=== PATIENT | female | born 1950 | race Caucasian/White ===

== ENCOUNTER 2022-04-20 21:20 | Inpatient (IN) ==
[2022-04-20] MEDS ORDERED: Iopamidol - 370 500 ML MLS IVP ONE (21:37)
[2022-04-20 22:48] LABS: Hematocrit 38.4 % (35.3-44.9); Hemoglobin 12.1 g/dL (11.5-15.4); Mean Corpuscular HGB Conc 31.5 g/dL (31.6-35.5); Mean Corpuscular Hemoglobin 29.3 pg (28.0-33.3); Mean Platelet Volume 9.7 fL (9.4-12.4); Platelet Count 275 K/mcL (140-400); Red Blood Count 4.13 M/mcL (3.82-4.97); Red Cell Distribution Width 13.8 % (11.5-14.5); White Blood Count 12.3 K/mcL (4.3-11.1)
[2022-04-20 22:57] LABS: INR 1.1
[2022-04-20 22:59] LABS: Activated Partial Thrombo Time 56.3 Seconds (26.0-36.0)
[2022-04-20] MEDS ORDERED: Aspirin 325 MG TABLET PO ONE (23:02)
[2022-04-20 23:12] LABS: Calcium 9.5 mg/dL (8.6-10.3); Potassium 4.6 mEq/L (3.5-5.1)
[2022-04-20 23:12] LABS: Bacteria,Urine Moderate per hpf (None-Few); Bilirubin,Urine Negative (Negative); Blood,Urine Negative (Negative); Clarity,Urine Turbid (Clear); Color,Urine Light-Yellow (Yellow); Glucose,Urine (UA) Normal (Normal); Ketones,Urine Negative (Negative); Leukocyte Esterase,Urine Large (Negative); Mucus,Urine Few per lpf (None-Few); Nitrite,Urine Negative (Negative); Protein,Urine 100 mg/dL (Neg-Trace); Specific Gravity,Urine 1.015 (1.010-1.025); Squamous Epithelial Cell,Urine Few per hpf (None-Few); Urobilinogen,Urine Normal (Normal); WBC,Urine 50-100 per hpf (0-3)
[2022-04-20] MEDS ORDERED: cefTRIAXone 1,000 MG in 0.9 % Sodium Chloride Mini Bag 100 ML IVPB ONE (23:21)
[2022-04-20] MEDS ORDERED: 0.9 % Sodium Chloride 1,000 ML IV ONE (23:21)
[2022-04-20 23:26] LABS: Troponin I 0.4 ng/mL (< 0.04)
[2022-04-21] MEDS ORDERED: Acetaminophen 325 MG TABLET PO ONE (00:16)
[2022-04-21 00:18] LABS: Influenza A PCR Negative (Negative); Influenza B PCR Negative (Negative); Resp. Syncytial Virus PCR Negative (Negative)
[2022-04-21 00:24] LABS: SARS-CoV-2 by PCR (In House) Negative (Negative)
[2022-04-21] MEDS ORDERED: Perflutren Lipid Microsphere 1.3 ML in 0.9 % Sodium Chloride 8.7 ML IVP PRN (00:37)
[2022-04-21] MEDS ORDERED: Ondansetron 4 MG/2 ML VIAL IVP PRN (01:00)
[2022-04-21] MEDS ORDERED: Naloxone 0.4 MG/ML INJ IVP PRN (01:00)
[2022-04-21] MEDS: cefTRIAXone 1,000 MG in 0.9 % Sodium Chloride Mini Bag 100 ML IVPB SCH (01:29)
[2022-04-21] MEDS ORDERED: D5% in Water 1,000 ML IVC PRN (03:24)
[2022-04-21] MEDS ORDERED: *HR* Dextrose 50 % in Water (Syg) 50 ML SYRINGE IVP PRN (03:24)
[2022-04-21] MEDS ORDERED: Dextrose Gel 15 GM/37.5 ML TUBE PO PRN ×2 (03:24)
[2022-04-21 05:34] LABS: Hematocrit 33.5 % (35.3-44.9); Mean Corpuscular HGB Conc 31.3 g/dL (31.6-35.5); Mean Corpuscular Volume 92.5 fL (83.0-100.0); Mean Platelet Volume 10.1 fL (9.4-12.4); Platelet Count 247 K/mcL (140-400); Red Blood Count 3.62 M/mcL (3.82-4.97); Red Cell Distribution Width 13.6 % (11.5-14.5); White Blood Count 10.9 K/mcL (4.3-11.1)
[2022-04-21 05:48] LABS: Hemoglobin 10.5 g/dL (11.5-15.4)
[2022-04-21 05:54] LABS: Calcium 8.8 mg/dL (8.6-10.3); Magnesium 1.7 mg/dL (1.6-2.6)
[2022-04-21 05:55] LABS: Chol/HDL Ratio 2.9 (0-4.9)
[2022-04-21 05:59] LABS: Troponin I 1.01 ng/mL (< 0.04)
[2022-04-21] MEDS ORDERED: *HR* Heparin 5,000 UNIT/ML VIAL IVP PRN ×2 (06:05)
[2022-04-21 06:11] LABS: Thyroid Stimulating Hormone 2.315 mcIU/mL (0.340-5.600)
[2022-04-21] MEDS: Insulin LISPRO 300 UNITS/3 ML VIAL SUBQ SCH ×3 (06:16→18:00)
[2022-04-21] MEDS: Heparin 25,000UNIT/250ML 1/2NS 25,000 UNIT/250 ML IV.SOLN IVC SCH ×2 (06:19→11:00)
[2022-04-21 11:25] LABS: Estimated Average Glucose 143 mg/dl; Hemoglobin A1C 6.6 %
[2022-04-21] MEDS: Aspirin Enteric Coated 81 MG Tablet PO SCH (11:56)
[2022-04-21] MEDS: calcitrioL 0.25 MCG CAPSULE PO SCH (16:35)
[2022-04-21] MEDS: Acetaminophen 325 MG TABLET PO PRN (16:35)
[2022-04-21] MEDS: amLODIPine 5 MG TABLET PO SCH (17:33)
[2022-04-21] MEDS: traZODone 50 MG TABLET PO SCH (20:00)
[2022-04-22] MEDS: Insulin LISPRO 300 UNITS/3 ML VIAL SUBQ SCH ×4 (01:48→17:25)
[2022-04-22] MEDS: cefTRIAXone 1,000 MG in 0.9 % Sodium Chloride Mini Bag 100 ML IVPB SCH (01:49)
[2022-04-22 02:36] LABS: Hematocrit 35.3 % (35.3-44.9); Hemoglobin 11.2 g/dL (11.5-15.4); Mean Corpuscular HGB Conc 31.7 g/dL (31.6-35.5); Mean Corpuscular Hemoglobin 29.6 pg (28.0-33.3); Mean Corpuscular Volume 93.1 fL (83.0-100.0); Mean Platelet Volume 10.5 fL (9.4-12.4); Platelet Count 284 K/mcL (140-400); Red Blood Count 3.79 M/mcL (3.82-4.97); White Blood Count 10.9 K/mcL (4.3-11.1)
[2022-04-22 03:01] LABS: Calcium 9.2 mg/dL (8.6-10.3); Potassium 4.5 mEq/L (3.5-5.1)
[2022-04-22] MEDS: amLODIPine 5 MG TABLET PO SCH (09:24)
[2022-04-22] MEDS: Aspirin Enteric Coated 81 MG Tablet PO SCH (09:24)
[2022-04-22] MEDS: Acetaminophen 325 MG TABLET PO PRN (19:56)
[2022-04-22] MEDS: traZODone 50 MG TABLET PO SCH (19:57)
[2022-04-23] MEDS: cefTRIAXone 1,000 MG in 0.9 % Sodium Chloride Mini Bag 100 ML IVPB SCH (00:28)
[2022-04-23] MEDS: Insulin LISPRO 300 UNITS/3 ML VIAL SUBQ SCH ×5 (00:29→23:51)
[2022-04-23] MEDS: Heparin 25,000UNIT/250ML 1/2NS 25,000 UNIT/250 ML IV.SOLN IVC SCH (05:56)
[2022-04-23 09:50] LABS: Calcium 9.8 mg/dL (8.6-10.3); Potassium 4.6 mEq/L (3.5-5.1)
[2022-04-23] MEDS: Aspirin Enteric Coated 81 MG Tablet PO SCH (09:54)
[2022-04-23] MEDS: amLODIPine 5 MG TABLET PO SCH (09:55)
[2022-04-23] MEDS: Acetaminophen 325 MG TABLET PO PRN (15:07)
[2022-04-23] MEDS: calcitrioL 0.25 MCG CAPSULE PO SCH (17:47)
[2022-04-23] MEDS: Cefdinir 300 MG CAPSULE PO SCH (19:50)
[2022-04-23] MEDS: traZODone 50 MG TABLET PO SCH (19:50)
[2022-04-24] MEDS: Acetaminophen 325 MG TABLET PO PRN (05:21)
[2022-04-24] MEDS: Insulin LISPRO 300 UNITS/3 ML VIAL SUBQ SCH ×3 (05:21→17:35)
[2022-04-24] MEDS: Aspirin Enteric Coated 81 MG Tablet PO SCH (09:07)
[2022-04-24] MEDS: amLODIPine 5 MG TABLET PO SCH (09:07)
[2022-04-24] MEDS: Cefdinir 300 MG CAPSULE PO SCH ×2 (09:11→21:20)
[2022-04-24] MEDS: traZODone 50 MG TABLET PO SCH (21:20)
[2022-04-25] MEDS: Insulin LISPRO 300 UNITS/3 ML VIAL SUBQ SCH ×4 (00:28→17:45)
[2022-04-25] MEDS: Aspirin Enteric Coated 81 MG Tablet PO SCH (08:58)
[2022-04-25] MEDS: amLODIPine 5 MG TABLET PO SCH (08:59)
[2022-04-25] MEDS: Cefdinir 300 MG CAPSULE PO SCH ×2 (09:01→21:04)
[2022-04-25] MEDS: Acetaminophen 325 MG TABLET PO PRN (15:56)
[2022-04-25] MEDS: calcitrioL 0.25 MCG CAPSULE PO SCH (17:44)
[2022-04-25] MEDS: *HR* Heparin 5,000 UNIT/ML VIAL SQ SCH (17:44)
[2022-04-25] MEDS: traZODone 50 MG TABLET PO SCH (21:04)
[2022-04-26] MEDS: Insulin LISPRO 300 UNITS/3 ML VIAL SUBQ SCH ×4 (00:51→17:29)
[2022-04-26] MEDS: *HR* Heparin 5,000 UNIT/ML VIAL SQ SCH ×2 (05:36→17:40)
[2022-04-26] MEDS: amLODIPine 5 MG TABLET PO SCH (08:53)
[2022-04-26] MEDS: Cefdinir 300 MG CAPSULE PO SCH (08:53)
[2022-04-26] MEDS: Aspirin Enteric Coated 81 MG Tablet PO SCH (08:54)
[2022-04-26] MEDS: Acetaminophen 325 MG TABLET PO PRN (08:57)
[2022-04-26] MEDS: traZODone 50 MG TABLET PO SCH (21:48)
[2022-04-27] MEDS: *HR* Heparin 5,000 UNIT/ML VIAL SQ SCH ×2 (05:55→17:47)
[2022-04-27] MEDS: Insulin LISPRO 300 UNITS/3 ML VIAL SUBQ SCH ×4 (06:11→17:47)
[2022-04-27] MEDS: Aspirin Enteric Coated 81 MG Tablet PO SCH (08:51)
[2022-04-27] MEDS: amLODIPine 5 MG TABLET PO SCH (08:51)
[2022-04-27] MEDS: Insulin DETEMIR 100 UNIT/ML X5UNITS SUBQ SCH (09:25)
[2022-04-27] MEDS: Acetaminophen 325 MG TABLET PO PRN (09:27)
[2022-04-27] MEDS: traZODone 50 MG TABLET PO SCH (20:30)
[2022-04-28] MEDS: Insulin LISPRO 300 UNITS/3 ML VIAL SUBQ SCH ×3 (00:48→12:33)
[2022-04-28] MEDS: Insulin DETEMIR 100 UNIT/ML X5UNITS SUBQ SCH ×2 (00:57→07:59)
[2022-04-28 07:36] VITALS: BP 146/78; PULSE 68; TEMP 97.4; O2SAT 94
[2022-04-28] MEDS: Aspirin Enteric Coated 81 MG Tablet PO SCH (07:57)
[2022-04-28] MEDS: amLODIPine 5 MG TABLET PO SCH (07:57)
[2022-04-28] MEDS: *HR* Heparin 5,000 UNIT/ML VIAL SQ SCH (07:58)
[2022-04-28] MEDS ORDERED: Insulin DETEMIR 100 UNIT/ML X5UNITS SUBQ SCH (21:00)
== END 2022-04-28 17:30 | disposition home health service (06) | DRG 40 ==
LOC: 3NENU 21:20 → EMEROOARM 21:20 → SUATTDRO 04-21 08:27 → 3NENU 04-21 10:40
PROVIDERS: ADMIT Internal Medicine; ATTEND Internal Medicine

== ENCOUNTER 2022-07-15 18:49 | Observation (INO) ==
[2022-07-16] MEDS ORDERED: Iopamidol - 370 500 ML MLS IVP ONE (00:16)
[2022-07-16] MEDS ORDERED: Acetaminophen IV 1,000 MG/100 ML BAG IVPB ONE (00:17)
[2022-07-16 01:37] LABS: Bilirubin,Urine Negative (Negative); Blood,Urine Negative (Negative); Clarity,Urine Clear (Clear); Color,Urine Light-Yellow (Yellow); Glucose,Urine (UA) Normal (Normal); Ketones,Urine Negative (Negative); Leukocyte Esterase,Urine Negative (Negative); Mucus,Urine Few per lpf (None-Few); Nitrite,Urine Negative (Negative); Protein,Urine 50 mg/dL (Neg-Trace); Specific Gravity,Urine 1.013 (1.010-1.025); Squamous Epithelial Cell,Urine Few per hpf (None-Few); Urobilinogen,Urine Normal (Normal); WBC,Urine 0-3 per hpf (0-3)
[2022-07-16 02:07] LABS: Basophils # 0.1 K/mcL (0.0-0.2); Basophils % 0.6 %; Eosinophils # 0.6 K/mcL (0.0-0.6); Eosinophils % 5.8 %; Hematocrit 36.5 % (35.3-44.9); Hemoglobin 11.3 g/dL (11.5-15.4); Immature Granulocytes % 0.2 % (0-4); Lymphocytes # 2.4 K/mcL (0.6-4.6); Lymphocytes % 25.5 %; Mean Corpuscular Volume 93.6 fL (83.0-100.0); Mean Platelet Volume 9.9 fL (9.4-12.4); Monocytes % 10.6 %; Neutrophils # 5.4 K/mcL (1.6-8.9); Platelet Count 272 K/mcL (140-400); Red Cell Distribution Width 14.2 % (11.5-14.5); Segmented Neutrophils % 57.3 %; White Blood Count 9.5 K/mcL (4.3-11.1)
[2022-07-16 02:15] LABS: Prothrombin Time 11.5 Seconds (9.4-12.1)
[2022-07-16 02:20] LABS: BUN/Creatinine Ratio 16 (6-26); Blood Urea Nitrogen 34 mg/dL (8-23); Calcium 9.4 mg/dL (8.6-10.3); Carbon Dioxide 21 mEq/L (23-29); Chloride 106 mEq/L (98-107); Glucose 95 mg/dL (70-105); Osmolality,Calculated 291 (280-300); Potassium 4.2 mEq/L (3.5-5.1); Sodium 137 mEq/L (136-145)
[2022-07-16 02:21] LABS: Troponin I < 0.03 ng/mL (< 0.04)
[2022-07-16] MEDS ORDERED: Aspirin 325 MG TABLET PO ONE (03:35)
[2022-07-16] MEDS ORDERED: Acetaminophen 325 MG TABLET PO PRN (03:44)
[2022-07-16] MEDS ORDERED: Melatonin 3 MG TABLET PO PRN (03:44)
[2022-07-16] MEDS ORDERED: Naloxone 0.4 MG/ML INJ IVP PRN (03:44)
[2022-07-16] MEDS ORDERED: Ondansetron ODT 4 MG TAB.RAPDIS SL PRN (03:44)
[2022-07-16] MEDS ORDERED: Dextrose Gel 15 GM/37.5 ML TUBE PO PRN ×2 (04:13)
[2022-07-16] MEDS ORDERED: D5% in Water 1,000 ML IVC PRN (04:13)
[2022-07-16] MEDS ORDERED: *HR* Dextrose 50 % in Water (Syg) 50 ML SYRINGE IVP PRN (04:13)
[2022-07-16 06:09] LABS: Hematocrit 34.6 % (35.3-44.9); Hemoglobin 10.9 g/dL (11.5-15.4); Mean Corpuscular HGB Conc 31.5 g/dL (31.6-35.5); Mean Corpuscular Hemoglobin 29.4 pg (28.0-33.3); Mean Corpuscular Volume 93.3 fL (83.0-100.0); Mean Platelet Volume 10.6 fL (9.4-12.4); Platelet Count 266 K/mcL (140-400); Red Blood Count 3.71 M/mcL (3.82-4.97); Red Cell Distribution Width 14.2 % (11.5-14.5); White Blood Count 9.4 K/mcL (4.3-11.1)
[2022-07-16 06:18] LABS: Prothrombin Time 11.6 Seconds (9.4-12.1)
[2022-07-16 06:31] LABS: Phosphorous 3.6 mg/dL (2.7-4.5)
[2022-07-16 06:32] LABS: Alanine Aminotransferase 32 Units/L (7-52); Albumin 3.8 g/dL (3.5-5.7); Albumin/Globulin Ratio 1.3 (1.1-2.2); Alkaline Phosphatase 63 Units/L (34-104); Aspartate Amino Transferase 31 Units/L (13-39); BUN/Creatinine Ratio 16 (6-26); Bilirubin,Total 0.4 mg/dL (0.3-1.0); Blood Urea Nitrogen 33 mg/dL (8-23); Carbon Dioxide 20 mEq/L (23-29); Chloride 108 mEq/L (98-107); Chol/HDL Ratio 2.8 (0-4.9); Cholesterol 171 mg/dL (< 200); Globulin 2.9 g/dL (2.4-3.5); Glucose 104 mg/dL (70-105); HDL Cholesterol 61 mg/dL (40-59); LDL Cholesterol,Calculated 94 mg/dL (< 100); Osmolality,Calculated 290 (280-300); Potassium 4.1 mEq/L (3.5-5.1); Sodium 136 mEq/L (136-145); Total Protein 6.7 g/dL (6.4-8.9); Triglycerides 82 mg/dL (< 150); Troponin I < 0.03 ng/mL (< 0.04)
[2022-07-16 06:42] LABS: Thyroid Stimulating Hormone 3.561 mcIU/mL (0.340-5.600)
[2022-07-16] MEDS: Insulin LISPRO 300 UNITS/3 ML VIAL SUBQ SCH ×3 (08:08→17:11)
[2022-07-16] MEDS: Aspirin Enteric Coated 81 MG Tablet PO SCH (09:04)
[2022-07-16] MEDS: carvediloL 6.25 MG TABLET PO SCH (17:31)
[2022-07-16] MEDS ORDERED: traZODone 50 MG TABLET PO SCH (21:00)
[2022-07-16] MEDS ORDERED: Insulin LISPRO 300 UNITS/3 ML VIAL SUBQ SCH (21:00)
[2022-07-17] MEDS ORDERED: Furosemide 40 MG TABLET PO PRN (08:24)
[2022-07-17] MEDS ORDERED: amLODIPine 5 MG TABLET PO SCH (09:00)
[2022-07-17] MEDS: Insulin LISPRO 300 UNITS/3 ML VIAL SUBQ SCH ×2 (09:44→12:20)
[2022-07-17] MEDS: Aspirin Enteric Coated 81 MG Tablet PO SCH (09:53)
[2022-07-17] MEDS: carvediloL 6.25 MG TABLET PO SCH (09:55)
[2022-07-17 10:48] VITALS: BP 138/76; PULSE 83; TEMP 98.3; O2SAT 97
[2022-07-17 11:18] LABS: Estimated Average Glucose 137 mg/dl; Hemoglobin A1C 6.4 %
[2022-07-17] MEDS ORDERED: Insulin DETEMIR 100 UNIT/ML X5UNITS SUBQ SCH (21:00)
[2022-07-18] MEDS ORDERED: calcitrioL 0.25 MCG CAPSULE PO SCH (09:00)
[2022-07-18 09:11] LABS: Hematocrit RBC Folate 34.6 %
== END 2022-07-17 16:33 | disposition home or self-care (01) ==
LOC: 3BNU 18:49 → EMEROOARM 18:49 → SUATTDRO 07-16 03:51 → 3BNU 07-16 04:20
PROVIDERS: ADMIT Internal Medicine; ATTEND Internal Medicine